=== PATIENT | male | born 1985 | race African-American/Black ===

== ENCOUNTER 2019-02-04 10:00 | Emergency (ER) | payer OTHER ==
--- NOTE | 2019-02-04 12:20 | EDPHYS ---
Physician Documentation [facility] Name: Oscar Padilla Age: 34 yrs Sex: Male : 1985 Arrival Date: 02/04/2019 Time: 10:03 Bed 11 Private MD: Arnol Soliz ED Physician Mariusz Irene HPI: 02/04 12:19 This 34 yrs old Black Male presents to ER via Ambulatory with complaints of Redness of jmm Eye. 12:19 The patient is experiencing matting or discharge, pain. Onset: The symptoms/episode jmm began/occurred gradually, 1 day(s) ago. Duration: the symptoms are continuous. Aggravated by nothing. Alleviated by nothing. 12:23 This is a 34 year old male that presents to the ED with right eye redness beginning jmm yesterday. Mother states the patient chronically touches his right eye due to disability. Clear drainage began today. Patient denies pain. Historical: - Allergies: 10:14 Cefaclor; hb - Immunization history:: Adult Immunizations up to date. - Social history:: Smoking status: Patient/guardian denies using tobacco. - Ebola Screening: : No symptoms or risks identified at this time. ROS: 12:23 Constitutional: Negative for fever, chills, and weight loss. jmm 12:23 ENT: Negative for injury, pain, and discharge, Cardiovascular: Negative for chest pain, palpitations, and edema, Respiratory: Negative for shortness of breath, cough, wheezing, and pleuritic chest pain, Abdomen/GI: Negative for abdominal pain, nausea, vomiting, diarrhea, and constipation. 12:23 Eyes: Positive for redness. 12:23 All other systems are negative. Exam: 12:23 Constitutional: This is a well developed, well nourished patient who is awake, alert, jmm and in no acute distress. Head/Face: atraumatic. 12:23 Neck: Trachea midline, Supple Chest/axilla: Normal chest wall appearance and motion. Cardiovascular: Regular rate and rhythm. No edema appreciated Respiratory: Normal respirations, no respiratory distress appreciated Abdomen/GI: Non distended, soft Back: Normal ROM MS/ Extremity: Moves all extremities, no obvious deformities appreciated, no edema noted to the lower extremities Neuro: Awake and alert, normal gait Psych: Behavior is normal, Mood is normal, Patient is cooperative and pleasant 12:23 Eyes: injected conjunctiva noted to the right eye with right upper eyelid edema. Vital Signs: 10:14 BP 150 / 94; Pulse 87; Resp 16; Temp 97.8; Pulse Ox 100% on R/A; Weight 138.35 kg; hb Height 5 ft. 9 in. (175.26 cm); Pain 3/10; 10:14 Body Mass Index 45.04 (138.35 kg, 175.26 cm) hb MDM: 12:17 Patient medically screened. [facility] 12:17 Data reviewed: vital signs, nurses notes. Counseling: I had a detailed discussion with yvette the patient and/or guardian regarding: the historical points, exam findings, and any diagnostic results supporting the discharge/admit diagnosis, the need for outpatient follow up, to return to the emergency department if symptoms worsen or persist or if there are any questions or concerns that arise at home. ED course: Patient is alert and non toxic in appearance in the ED. PE findings consistent with conjunctivitis. Mother advised to follow up with weaving inspector in 1 to 2 days for reevaluation. Mother understood and agrees with the plan of care. . Administered Medications: No medications were administered Disposition: 02/05 09:34 Co-signature as Attending Physician, Mariusz Irene MD I agree with the assessment and kdr plan of care. Disposition: 02/04/19 12:19 Discharged to Home. Impression: Other acute conjunctivitis. - Condition is Stable. - Discharge Instructions: Bacterial Conjunctivitis. - Prescriptions for Erythromycin 5 mg/gram (0.5 %) Ophthalmic Ointment - apply 1 ribbon by OPHTHALMIC route every 8 hours; 1 tube. - Medication Reconciliation Form, Thank You Letter, Antibiotic Education, Prescription Opioid Use form. - Follow up: Private Physician; When: 2 - 3 days; Reason: Recheck today's complaints, Continuance of care, Re-evaluation by your physician. Signatures: Mariusz Irene MD MD kdr Mickail, Joel, PA PA jmm Baxter, Heather, RN RN Corrections: (The following items were deleted from the chart) 02/04 12:26 12:19 02/04/2019 12:19 Discharged to Home. Impression: Other acute conjunctivitis. hb Condition is Stable. Forms are Medication Reconciliation Form, Thank You Letter, Antibiotic Education, Prescription Opioid Use. Follow up: Private Physician; When: 2 - 3 days; Reason: Recheck today's complaints, Continuance of care, Re-evaluation by your physician. yvette
--- NOTE | 2019-02-04 12:20 | ER ---
Nurse's Notes [facility] Name: Oscar Padilla Age: 34 yrs Sex: Male : 1985 Arrival Date: 02/04/2019 Time: 10:03 Bed 11 Private MD: Arnol Soliz Diagnosis: Other acute conjunctivitis Presentation: 02/04 10:13 Presenting complaint: Right eye redness, pain, and itching x 2 days, both eyes itching hb today. Transition of care: patient was not received from another setting of care. Onset of symptoms was February 03, 2019. Risk Assessment: Do you want to hurt yourself or someone else? Patient reports no desire to harm self or others. Initial Sepsis Screen: Does the patient meet any 2 criteria? No. Patient's initial sepsis screen is negative. Does the patient have a suspected source of infection? No. Patient's initial sepsis screen is negative. Care prior to arrival: None. 10:13 Method Of Arrival: Ambulatory hb 10:13 Acuity: GERALD 4 hb Triage Assessment: 10:15 General: Appears in no apparent distress. Behavior is calm, cooperative. Pain: Pain hb currently is 3 out of 10 on a pain scale. EENT: Eyes with exudate noted from outer aspect of conjuctiva of right eye Sclera/Cornea are reddened in outer aspect of conjuctiva of right eye and outer aspect of conjuctiva of left eye Lid(s) swelling and redness noted. Neuro: Level of Consciousness is awake, alert, obeys commands, Oriented to person, place, situation. Cardiovascular: Capillary refill < 3 seconds Patient's skin is warm and dry. Respiratory: Airway is patent Respiratory effort is even, unlabored, Respiratory pattern is regular, symmetrical. GI: No signs and/or symptoms were reported involving the gastrointestinal system. : No signs and/or symptoms were reported regarding the genitourinary system. Derm: Skin is intact, is healthy with good turgor. Musculoskeletal: No signs and/or symptoms reported regarding the musculoskeletal system. Historical: - Allergies: 10:14 Cefaclor; hb - Immunization history:: Adult Immunizations up to date. - Social history:: Smoking status: Patient/guardian denies using tobacco. - Ebola Screening: : No symptoms or risks identified at this time. Screenin:00 Abuse screen: Denies threats or abuse. Denies injuries from another. Nutritional hb screening: No deficits noted. Tuberculosis screening: No symptoms or risk factors identified. Fall Risk None identified. Assessment: 10:15 General: see triage assessment . hb 12:25 Reassessment: Patient appears in no apparent distress at this time. No changes from previously documented assessment. Patient and/or family updated on plan of care and expected duration. Pain level reassessed. Vital Signs: 10:14 BP 150 / 94; Pulse 87; Resp 16; Temp 97.8; Pulse Ox 100% on R/A; Weight 138.35 kg; hb Height 5 ft. 9 in. (175.26 cm); Pain 3/10; 10:14 Body Mass Index 45.04 (138.35 kg, 175.26 cm) hb ED Course: 10:03 Patient arrived in ED. rg4 10:04 Arnol Soliz MD is Private Physician. rg4 10:14 Triage completed. hb 10:14 Arm band placed on. hb 12:10 Joselito Wilson PA is PHCP. [facility] 12:10 Mariusz Irene MD is Attending Physician. [facility] 12:15 Patient has correct armband on for positive identification. Call light in reach. hb 12:23 Nicole Maynard, SILVIA is Primary Nurse. hb 12:25 No provider procedures requiring assistance completed. Patient did not have IV access hb during this emergency room visit. Administered Medications: No medications were administered Outcome: 12:19 Discharge ordered by . [facility] 12:25 Discharged to home ambulatory, with family. hb 12:25 Condition: stable 12:25 Discharge instructions given to patient, family, Instructed on discharge instructions, follow up and referral plans. medication usage, Demonstrated understanding of instructions, follow-up care, medications, Prescriptions given X 1. 12:26 Patient left the ED. hb Signatures: Joselito Wilson PA PA jmm Baxter, Heather, RN RN Vicki Moore rg4
[2019-02-04 12:32] VITALS: BP 150/94; TEMP 97.8; O2SAT 100
== END 2019-02-04 12:26 | disposition home or self-care (01) ==
LOC: ER 10:00
DX: H10.89 Other conjunctivitis (principal)
CPT/HCPCS: 99282

== ENCOUNTER 2019-04-06 01:23 | Emergency (ER) | payer OTHER ==
[2019-04-06] MEDS ORDERED: AMOX/K CLAV 875 MG TAB ONE (01:52)
[2019-04-06] MEDS ORDERED: HYDROCODONE/APAP 5/325 MG TAB ONE ×2 (01:55→01:59)
--- NOTE | 2019-04-06 01:55 | EDPHYS ---
Physician Documentation [facility] Name: Oscar Padilla Age: 34 yrs Sex: Male : 1985 Arrival Date: 04/06/2019 Time: :28 Bed 16 Private MD: Arnol Soliz ED Physician Dimas Dee HPI: 04/06 01:50 This 34 yrs old Black Male presents to ER via Unassigned with complaints of Ear Pain. jmm 01:50 The patient presents with pain. Onset: The symptoms/episode began/occurred gradually, jmm today. Modifying factors: The symptoms are alleviated by nothing, the symptoms are aggravated by nothing. Associated signs and symptoms: Pertinent negatives: cough, fever, sore throat. The patient has experienced a previous episode. This is a 34 year old male that presents to the ED with complaints of right ear pain beginning earlier today. Denies fever, cough, sore throat, sinus congestion. . Historical: - Allergies: 01:57 Cefaclor; aa1 - Home Meds: 01:57 amlodipine oral [Active]; Flonase Nasal [Active]; losartan Oral [Active]; pramipexole aa1 Oral [Active]; sertraline Oral [Active]; Symbicort inhalation [Active]; 02:00 Hydrochlorothiazide Oral [Active]; Xopenex Inhl [Active]; Metoprolol Tartrate Oral aa1 [Active]; Furosemide Oral [Active]; Metformin Oral [Active]; - PMHx: 01:57 Diabetes - NIDDM; Hypertension; mental retardation; seasonal allergies; Sleep Apnea; aa1 Asthma; 02:00 RLS; aa1 - PSHx: 02:00 Hernia repair; aa1 - Immunization history:: Adult Immunizations up to date. - Social history:: Smoking status: Patient/guardian denies using tobacco, Patient/guardian denies using alcohol, street drugs, IV drugs. - Ebola Screening: : No symptoms or risks identified at this time. ROS: 01:50 Constitutional: Negative for fever, chills, and weight loss. jmm 01:50 Cardiovascular: Negative for chest pain, palpitations, and edema, Respiratory: Negative for shortness of breath, cough, wheezing, and pleuritic chest pain. 01:50 ENT: Positive for ear pain. 01:50 All other systems are negative. Exam: 01:50 Constitutional: This is a well developed, well nourished patient who is awake, alert, jmm and in no acute distress. Head/Face: atraumatic. Eyes: EOMI, no conjunctival erythema appreciated 01:50 Neck: Trachea midline, Supple Chest/axilla: Normal chest wall appearance and motion. Cardiovascular: Regular rate and rhythm. No edema appreciated Respiratory: Normal respirations, no respiratory distress appreciated Abdomen/GI: Non distended, soft Back: Normal ROM Skin: General appearance color normal MS/ Extremity: Moves all extremities, no obvious deformities appreciated, no edema noted to the lower extremities Neuro: Awake and alert, normal gait Psych: Behavior is normal, Mood is normal, Patient is cooperative and pleasant 01:50 ENT: TM's: erythema, that is moderate, on the right. Vital Signs: 02:04 BP 146 / 82; Pulse 71; Resp 18; Temp 98.2; Pulse Ox 99% on R/A; Weight 140.61 kg; aa1 Height 5 ft. 9 in. (175.26 cm); Pain 6/10; 02:04 Body Mass Index 45.78 (140.61 kg, 175.26 cm) aa1 MDM: 01:46 Patient medically screened. [facility] 01:50 Data reviewed: vital signs, nurses notes. Counseling: I had a detailed discussion with yvette the patient and/or guardian regarding: the historical points, exam findings, and any diagnostic results supporting the discharge/admit diagnosis, the need for outpatient follow up, to return to the emergency department if symptoms worsen or persist or if there are any questions or concerns that arise at home. ED course: Patient is alert and non toxic in appearance in the ED. Mother advised to follow up with pcp and otherwise given strict return precautions. Mother understood and agrees with the plan of care. . Administered Medications: 02:00 Drug: Augmentin 875 mg Route: PO; jd3 02:14 Follow up: Response: Medication administered at discharge. jd3 02:00 Drug: [place] 5 mg-325 mg 1 tabs Route: PO; jd3 02:14 Follow up: Response: Medication administered at discharge. jd3 Disposition: 13:47 Co-signature as Attending Physician, Dimas Dee MD I agree with the assessment and bella plan of care. Disposition: 04/06/19 01:54 Discharged to Home. Impression: Acute serous otitis media. - Condition is Stable. - Discharge Instructions: Otitis Media, Adult. - Prescriptions for Augmentin 875- 125 mg Oral Tablet - take 1 tablet by ORAL route every 12 hours for 10 days; 20 tablet. - Medication Reconciliation Form, Thank You Letter, Antibiotic Education, Prescription Opioid Use form. - Follow up: Arnol Soliz MD; When: 2 - 3 days; Reason: Recheck today's complaints, Continuance of care, Re-evaluation by your physician. Signatures: Karen Bardales RN RN aa1 Dimas Dee MD MD cha Mickail, Joel, PA PA Luciano Flor RN RN jd3 Corrections: (The following items were deleted from the chart) 02:15 01:54 04/06/2019 01:54 Discharged to Home. Impression: Acute serous otitis media. jd3 Condition is Stable. Forms are Medication Reconciliation Form, Thank You Letter, Antibiotic Education, Prescription Opioid Use. Follow up: Arnol Soliz; When: 2 - 3 days; Reason: Recheck today's complaints, Continuance of care, Re-evaluation by your physician. yvette
--- NOTE | 2019-04-06 02:16 | ER ---
Nurse's Notes [facility] Name: Oscar Padilla Age: 34 yrs Sex: Male : 1985 Arrival Date: 04/06/2019 Time: : Bed 16 Private MD: Arnol Soliz Diagnosis: Acute serous otitis media Presentation: 04/06 01:55 Presenting complaint: Mother states: R ear pain since last night. Transition of care: aa1 patient was not received from another setting of care. Onset of symptoms was May 05, 2019. Risk Assessment: Do you want to hurt yourself or someone else?. Initial Sepsis Screen: Does the patient meet any 2 criteria? No. Patient's initial sepsis screen is negative. Does the patient have a suspected source of infection? No. Patient's initial sepsis screen is negative. Care prior to arrival: None. 01:55 Method Of Arrival: Ambulatory aa1 01:55 Acuity: GERALD 5 aa1 Triage Assessment: 02:00 General: Appears in no apparent distress. comfortable, Behavior is calm, cooperative, aa1 appropriate for age. Historical: - Allergies: 01:57 Cefaclor; aa1 - Home Meds: 01:57 amlodipine oral [Active]; Flonase Nasal [Active]; losartan Oral [Active]; pramipexole aa1 Oral [Active]; sertraline Oral [Active]; Symbicort inhalation [Active]; 02:00 Hydrochlorothiazide Oral [Active]; Xopenex Inhl [Active]; Metoprolol Tartrate Oral aa1 [Active]; Furosemide Oral [Active]; Metformin Oral [Active]; - PMHx: 01:57 Diabetes - NIDDM; Hypertension; mental retardation; seasonal allergies; Sleep Apnea; aa1 Asthma; 02:00 RLS; aa1 - PSHx: 02:00 Hernia repair; aa1 - Immunization history:: Adult Immunizations up to date. - Social history:: Smoking status: Patient/guardian denies using tobacco, Patient/guardian denies using alcohol, street drugs, IV drugs. - Ebola Screening: : No symptoms or risks identified at this time. Screenin:03 Abuse screen: Denies threats or abuse. Nutritional screening: No deficits noted. jd3 Tuberculosis screening: No symptoms or risk factors identified. Fall Risk Ambulatory Aid- None/Bed Rest/Nurse Assist (0 pts). Gait- Normal/Bed Rest/Wheelchair (0 pts) Mental Status- Oriented to own ability (0 pts). Total [place] Fall Scale indicates No Risk (0-24 pts). Assessment: 02:00 General: Appears in no apparent distress. uncomfortable, Behavior is calm, cooperative, jd3 appropriate for age. Pain: Complains of pain in right ear. Neuro: Level of Consciousness is awake, alert, obeys commands, Oriented to at baseline for pt per family.. Cardiovascular: Capillary refill < 3 seconds Patient's skin is warm and dry. Respiratory: Airway is patent Respiratory effort is even, unlabored, Respiratory pattern is regular, symmetrical. GI: No signs and/or symptoms were reported involving the gastrointestinal system. : No signs and/or symptoms were reported regarding the genitourinary system. EENT: Reports pain in right ear. Derm: Skin is intact, Skin is dry, Skin is normal, Skin temperature is warm. Musculoskeletal: Circulation, motion, and sensation intact. Range of motion: intact in all extremities. 02:13 Reassessment: family reported understanding of discharge instructions. even and steady jd3 gait upon discharge. Vital Signs: 02:04 BP 146 / 82; Pulse 71; Resp 18; Temp 98.2; Pulse Ox 99% on R/A; Weight 140.61 kg; aa1 Height 5 ft. 9 in. (175.26 cm); Pain 6/10; 02:04 Body Mass Index 45.78 (140.61 kg, 175.26 cm) aa1 ED Course: 01:28 Patient arrived in ED. es 01:28 Arnol Soliz MD is Private Physician. es 01:34 Joselito Wilson PA is PHCP. jmm 01:34 Dimas Dee MD is Attending Physician. jmm 01:49 Luciano Marshall, SILVIA is Primary Nurse. jd3 01:53 Arnol Soliz MD is Referral Physician. jmm 01:56 Triage completed. aa1 02:03 Arm band placed on. jd3 02:03 Patient has correct armband on for positive identification. Bed in low position. Call jd3 light in reach. Side rails up X 1. Adult w/ patient. 02:04 No provider procedures requiring assistance completed. Patient did not have IV access jd3 during this emergency room visit. Administered Medications: 02:00 Drug: Augmentin 875 mg Route: PO; jd3 02:14 Follow up: Response: Medication administered at discharge. jd3 02:00 Drug: [place] 5 mg-325 mg 1 tabs Route: PO; jd3 02:14 Follow up: Response: Medication administered at discharge. jd3 Outcome: 01:54 Discharge ordered by . yvette 02:13 Discharged to home ambulatory, with family. jd3 02:13 Condition: stable 02:13 Discharge instructions given to patient, family, Instructed on discharge instructions, follow up and referral plans. medication usage, Demonstrated understanding of instructions, follow-up care, medications, Prescriptions given X 1. 02:15 Patient left the ED. jd3 Signatures: Karen Bardales, RN RN aa1 Joselito Wilson PA PA jmm Salyer, Edna es Davies, Jonathon, RN RN jd3
== END 2019-04-06 02:15 | disposition home or self-care (01) ==
LOC: ER 01:23
DX: H65.01 Acute serous otitis media, right ear (principal); I10 Essential (primary) hypertension; E11.9 Type 2 diabetes mellitus without complications; J45.909 Unspecified asthma, uncomplicated